=== PATIENT | male | born 1930 | race Caucasian/White ===

== ENCOUNTER 2018-01-11 10:13 | Inpatient (IN) | payer OTHER ==
[~2018-01-11] VITALS: Ht 172.7 cm; Wt 87.5 kg
[2018-01-11 10:55] LABS: HEMATOCRIT 41.2 % (38.0-50.0); HEMOGLOBIN 13.4 G/DL (12.5-16.6); MCHC 32.5 G/DL (30.0-36.0); MCV 89.2 FL (86-99); PLATELET COUNT 161 K/uL (156-360); RBC DIS.WIDTH-CV 16.4 % (11.8-14.6); RBC DIS.WIDTH-SD 53.3 % (39-53); RED BLOOD COUNT 4.62 M/uL (4.00-5.50); WHITE BLOOD COUNT 7.4 K/uL (4.1-10.2)
[2018-01-11 11:06] LABS: CHLORIDE 105 mEq/L (99-109); POTASSIUM 3.9 mEq/L (3.7-5.4); SODIUM 139 mEq/L (136-147)
[2018-01-11 11:07] LABS: GLUCOSE 100 mg/dL (70-99)
[2018-01-11 11:11] LABS: CREATININE 1.5 mg/dL (0.6-1.3); GFR ESTIMATE (CALCULATED) 47 mL/min/ (58.99-99999)
[2018-01-11 11:12] LABS: UREA NITROGEN (BUN) 20 mg/dL (9-23)
[2018-01-11 14:13] LABS: TROP-I INTERPRETATION NEGATIVE; TROPONIN-I < 0.01 ng/mL (0.0-0.30)
[2018-01-11 14:28] VITALS: BP 183/81
[2018-01-11 19:39] LABS: TROP-I INTERPRETATION NEGATIVE; TROPONIN-I < 0.01 ng/mL (0.0-0.30)
[2018-01-11 19:43] VITALS: BP 125/65
[2018-01-12 00:47] VITALS: BP 129/71
[2018-01-12 04:13] VITALS: BP 135/78
[2018-01-12] MEDS ORDERED: HYDROCHLOROTHIA25 MG PO (04:25)
[2018-01-12] MEDS ORDERED: LOPRESSOR25 MG PO (04:26)
[2018-01-12 06:18] LABS: HEMATOCRIT 40.2 % (38.0-50.0); HEMOGLOBIN 12.5 G/DL (12.5-16.6); MCH 27.8 PG (29.0-34.0); MCHC 31.1 G/DL (30.0-36.0); MCV 89.5 FL (86-99); PLATELET COUNT 167 K/uL (156-360); RBC DIS.WIDTH-CV 16.5 % (11.8-14.6); RBC DIS.WIDTH-SD 53.5 % (39-53); RED BLOOD COUNT 4.49 M/uL (4.00-5.50); WHITE BLOOD COUNT 6.9 K/uL (4.1-10.2)
[2018-01-12 06:49] LABS: ALKALINE PHOSPHATASE 46 IU/L (3-129); ALT (GPT) 11 IU/L (3-49); AST (GOT) 18 IU/L (2-34); CHLORIDE 106 MEQ/L (99-109); CREATININE 1.4 MG/DL (0.6-1.3); GFR ESTIMATE (CALCULATED) 51 mL/min/ (58.99-99999); GLUCOSE 89 mg/dL (70-99); HDL CHOLESTEROL 27 MG/DL (Desirable>=40); LDL CHOLESTEROL 38 mg/dL (Desirable<100); NON-HDL CHOLESTEROL 73 mg/dL (Desirable<160); POTASSIUM 3.8 MEQ/L (3.7-5.4); SODIUM 140 MEQ/L (136-147); TOTAL BILIRUBIN 0.5 MG/DL (0.0-1.0); TOTAL CHOLESTEROL 100 mg/dL (Desirable<200); TOTAL PROTEIN 6.7 G/DL (6.4-8.3); TRIGLYCERIDES 177 MG/DL (Normal: <150); UREA NITROGEN (BUN) 19 mg/dL (9-23)
[2018-01-12 07:00] VITALS: BP 146/67
[2018-01-12 10:55] LABS: HEMOGLOBIN A1c (GLYCOHEMOGLOB) 5.4 % (Below 5.7)
[2018-01-12] MEDS ORDERED: VITAMIN C100 MG PO (11:01)
[2018-01-12] MEDS ORDERED: VITAMIN E100 UNIT PO (11:02)
[2018-01-12] MEDS ORDERED: MULTIVITAMIN1 EAC2 PO (11:02)
[2018-01-12] MEDS ORDERED: VITAMIN D2000 UNI1 PO (11:02)
[2018-01-12] MEDS ORDERED: ADULT ASPIRIN R81 MG PO (11:02)
[2018-01-12 11:12] VITALS: BP 151/71
[2018-01-12] MEDS ORDERED: CLOPIDOGREL75 MG PO (13:13)
[2018-01-12] MEDS ORDERED: ATORVASTATIN CA80 MG PO (13:13)
== END 2018-01-12 14:39 | disposition home health service (06) | DRG 65 ==
LOC: EME 10:13 → 5SOUTH 12:54 → EDOF 12:54 → ENRESERV 12:55 → 5SOUTH 14:10
PROVIDERS: Internal Medicine
DX: I63.232 Cerebral infarction due to unspecified occlusion or stenosis of left carotid arteries (principal); G81.91 Hemiplegia, unspecified affecting right dominant side; N17.9 Acute kidney failure, unspecified; R29.702 NIHSS score 2; I10 Essential (primary) hypertension; I25.10 Atherosclerotic heart disease of native coronary artery without angina pectoris; I67.9 Cerebrovascular disease, unspecified; E78.5 Hyperlipidemia, unspecified; K59.00 Constipation, unspecified; H91.90 Unspecified hearing loss, unspecified ear; Z95.1 Presence of aortocoronary bypass graft; Z79.82 Long term (current) use of aspirin; Z79.02 Long term (current) use of antithrombotics/antiplatelets; Z60.2 Problems related to living alone; Z82.49 Family history of ischemic heart disease and other diseases of the circulatory system
CPT/HCPCS: 70450; 70496; 70498; 70551; 71045; 71046; 80048; 80053; 80061; 83036; 84484; 85027; 92523 GN; 93005; 93306; 99281; 99285; J1644; J7030

== ENCOUNTER 2018-01-28 21:22 | Inpatient (IN) | payer OTHER ==
[~2018-01-28] VITALS: Ht 172.7 cm; Wt 87.1 kg
[~2018-01-28 21:22] MED LIST: ADULT ASPIRIN R81 MG PO; ATORVASTATIN CA80 MG PO; CLOPIDOGREL75 MG PO; HYDROCHLOROTHIA25 MG PO; LOPRESSOR25 MG PO; MULTIVITAMIN1 EAC2 PO; VITAMIN C100 MG PO; VITAMIN D2000 UNI1 PO; VITAMIN E100 UNIT PO
[2018-01-29 13:20] VITALS: BP 185/86
[2018-01-30] VITALS (10 sets, daily range): BP systolic 133–163; BP diastolic 52–81
[2018-01-30] MEDS ORDERED: HYDROCODON-ACE1 EAC7 PO (08:28)
== END 2018-01-30 18:33 | disposition home or self-care (01) | DRG 39 ==
LOC: 2SOUTH → ENRESERV 21:22 → 2SOUTH 01-29 10:01 → 4WEST 01-29 12:34 → 2SOUTH 01-29 12:34 → ENRESERV 01-29 17:35 → 4WEST 01-29 19:35 → ENRESERV 01-30 05:42 → 4WEST 01-30 05:49
DX: I65.22 Occlusion and stenosis of left carotid artery (principal); Z86.73 Personal history of transient ischemic attack (TIA), and cerebral infarction without residual deficits; I25.10 Atherosclerotic heart disease of native coronary artery without angina pectoris; Z95.1 Presence of aortocoronary bypass graft; E66.9 Obesity, unspecified; Z68.29 Body mass index [BMI] 29.0-29.9, adult; N18.9 Chronic kidney disease, unspecified; I12.9 Hypertensive chronic kidney disease with stage 1 through stage 4 chronic kidney disease, or unspecified chronic kidney disease
CPT/HCPCS: 78452; 87641; 93005; 93017; 94799; A9500; J0690; J1170; J1644; J1650; J2405; J2720; J2785; J2795; J3010; J7120